=== PATIENT | male | born 1960 | race Caucasian/White ===

== ENCOUNTER 2017-10-07 17:26 | Observation (INO) | payer OTHER ==
[2017-10-07 17:45] VITALS: BMI 25.8
--- NOTE | 2017-10-07 17:45 | PDOC ---
Rapid Medical Evaluation Chief Complaint: Suicidal Time Seen by Provider: 10/07/17 17:41 Medical Evaluation: Allergies Allergy/AdvReac Type Severity Reaction Status Date / Time No Known Allergies Allergy Verified 05/16/16 15:54 10/07/17 17:42 The patient presents with a chief complaint of: Suicidal ideation for two days. Hearing voices telling him to slash his wrists. Hx of same. Denies homicidal thoughts, visual hallucinations. Ran out of seroquil, celexa and trazadone. I have performed a brief in-person evaluation of this patient; Pertinent physical exam findings: Anxious on exam, no visible wounds. I have ordered the following: One-to-one, UA, UC, Utox, CBC, CMP The patient will proceed to the ED for further evaluation. Discharge Disposition - Referrals - Patient Instructions
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
[2017-10-07] MEDS ORDERED: CITALOPRAM HYDROBROMIDE 20 MG TABLET (FP) PO ONE (18:43)
[2017-10-07] MEDS ORDERED: traZODone HCL 100 MG TABLET (FP) PO ONE (18:43)
[2017-10-07] MEDS ORDERED: CITALOPRAM HYDROBROMIDE 10 MG TABLET (FP) ONE (19:00)
--- NOTE | 2017-10-07 19:26 | PDOC ---
*Physical Exam - Vital Signs Last Vital Signs Temp Pulse Resp BP Pulse Ox 98.6 F 97 H 19 125/73 100 10/07/17 17:42 10/07/17 17:42 10/07/17 17:42 10/07/17 17:42 10/07/17 17:42 ED Treatment Course - LABORATORY CBC & Chemistry Diagram: 10/07/17 21:00 10/07/17 21:00 - Medications Given in the ED: ED Medications Discontinued Medications Generic Name Dose Route Start Last Admin Trade Name Freq PRN Reason Stop Dose Admin Citalopram Hydrobromide 40 mg 10/07/17 18:43 10/07/17 19:01 Celexa - PO 10/07/17 18:44 40 mg DAILY ONE Administration Medical Decision Making - Medical Decision Making 10/07/17 19:25 Care taken over from Dr. Chinchilla - plan to go to [facility] or [facility] will see in morning. 10/07/17 22:50 Patient discussed with hospitalist and admitted for observation. *DC/Admit/Observation/Transfer Diagnosis at time of Disposition: Suicidal ideations - Discharge Dispostion Admit: Yes - Referrals - Patient Instructions - Post Discharge Activity Forms/Work/School Notes: My Personal Safety Plan
[2017-10-07 19:54] LABS: ACETAMINOPHEN < 2.0 ug/ml (10.0-30.0); SALICYLATE < 4.0 mg/dl (0.0-30.0)
[2017-10-07 21:17] LABS: URINE APPEARANCE SLCLOUDY; URINE BILIRUBIN NEGATIVE (NEGATIVE); URINE BLOOD NEGATIVE (NEGATIVE); URINE COLOR DKYELLOW; URINE GLUCOSE (UA) NEGATIVE (NEGATIVE); URINE KETONE 2+ (NEGATIVE); URINE LEUK ESTERASE NEGATIVE (NEGATIVE); URINE NITRITE NEGATIVE (NEGATIVE)
[2017-10-07 21:34] LABS: COCAINE, UR POSITIVE ng/ml (CUTOFF=300); METHADONE, UR NEGATIVE ng/ml (CUTOFF=300); OPIATES, URI NEGATIVE ng/ml (CUTOFF=300); PHENCYCLIDINE,URINE NEGATIVE ng/ml (CUTOFF=25); URINE AMPHETAMINES NEGATIVE ng/ml (CUTOFF=500); URINE BARBITURATES NEGATIVE ng/ml (CUTOFF=200); URINE BENZODIAZEPINES NEGATIVE ng/ml (CUTOFF=200)
[2017-10-07 21:44] LABS: BASO % 1.3 % (0-2.0); EOS % 1.3 % (0-4.5); HEMATOCRIT 39.4 % (35.4-49); HEMOGLOBIN 13.3 GM/dL (11.7-16.9); LYMPH % 27.4 % (8-40); MCH 30.8 pg (25.7-33.7); MCHC 33.7 g/dl (32.0-35.9); MEAN CELL VOLUME 91.5 fl (80-96); MEAN PLT VOLUME 8.8 fl (7.5-11.1); MONO % 12.5 % (3.8-10.2); NEUT % 57.5 % (42.8-82.8); PLATELET COUNT 223 K/MM3 (134-434); RDW 15.2 % (11.9-15.9); WHITE BLOOD COUNT 7.6 K/mm3 (4.0-10.0)
[2017-10-07 21:53] LABS: URINE PROTEIN 1+ (NEGATIVE)
[2017-10-07 21:55] LABS: ALBUMIN 3.7 g/dl (3.4-5.0); ANION GAP 8 (8-16); BILIRUBIN,TOTAL 0.9 mg/dL (0.2-1.0); BLOOD UREA NITROGEN 24 mg/dL (7-18); CALCIUM 8.4 mg/dL (8.5-10.1); CHLORIDE 104 mmol/L (98-107); CO2 26 mmol/L (21-32); GLUCOSE,RANDOM 91 mg/dL (74-106); POTASSIUM 3.9 mmol/L (3.5-5.1); SGOT/AST 30 U/L (15-37); SGPT/ALT 38 U/L (12-78); SODIUM 138 mmol/L (136-145); TOT PROT 7.2 g/dl (6.4-8.2)
[2017-10-07 21:56] LABS: ALK PHOS 75 U/L (45-117)
[2017-10-07] MEDS: QUEtiapine FUMARATE 200 MG TABLET PO SCH (22:51)
--- NOTE | 2017-10-07 23:05 | PN ---
Teaching Attending Note ATTENDING PHYSICIAN STATEMENT I saw and evaluated the patient. I reviewed the resident's note and discussed the case with the resident. I agree with the resident's findings and plan as documented. SUBJECTIVE: OBJECTIVE: ASSESSMENT AND PLAN:
--- NOTE | 2017-10-07 23:12 | HP ---
CHIEF COMPLAINT: Suicidal ideation PCP: HISTORY OF PRESENT ILLNESS: 56 year old male from [facility] with PMHx asthma, GERD , schizophrenia, multiple suicidal attempts who presented to the hospital today with 2 days history of hearing voices to cut him self was admitted to obs for further evaluation. Patient reports depression and anxiety. He reports running out of his medicine for the last 4 days. He used cocaine 2days ago. He denies any visual hallucination, denies to hurt any body else. he has 4 previous attempts of suicidal,twice by cutting himself and twice with unknown drug over dose. Denies any headach, blurry vision, N/V/D/C. Denies any chest pain, SOB, abdominal pain or any urinary symptoms. Denies any recent cold or sick contact. ER course was notable for: (1)09/27 observation (2) seraquel, Trazodone , celexa (3)EKG NSR, CBC,CMP WNL (4) Urine tox screen - positive for LAURA Recent Travel:denies PAST MEDICAL HISTORY: as per HPI PAST SURGICAL HISTORY: Appendectomy Social History: Smokin/2 PPD /20 years Alcohol:denies Drugs: Cocain Family History: Allergies haloperidol [From Haldol] Allergy (Verified 10/07/17 17:45) HOME MEDICATIONS: Home Medications Medication Instructions Recorded Fluticasone/Salmeterol [Advair 1 inh PO BID 05/16/16 250-50 Diskus] Albuterol Sulfate Inhaler - 2 puff IH Q4H PRN #0 inhaler 05/18/16 [Ventolin HFA Inhaler -] REVIEW OF SYSTEMS CONSTITUTIONAL: Absent: fever, chills, diaphoresis, generalized weakness, malaise, loss of appetite, weight change HEENT: Absent: rhinorrhea, nasal congestion, throat pain, throat swelling, difficulty swallowing, mouth swelling, ear pain, eye pain, visual changes CARDIOVASCULAR: Absent: chest pain, syncope, palpitations, irregular heart rate, lightheadedness , peripheral edema RESPIRATORY: Absent: cough, shortness of breath, dyspnea with exertion, orthopnea, wheezing, stridor, hemoptysis GASTROINTESTINAL: Absent: abdominal pain, abdominal distension, nausea, vomiting, diarrhea, constipation, melena, hematochezia GENITOURINARY: Absent: dysuria, frequency, urgency, hesitancy, hematuria, flank pain, genital pain MUSCULOSKELETAL: Absent: myalgia, arthralgia, joint swelling, back pain, neck pain SKIN: Absent: rash, itching, pallor HEMATOLOGIC/IMMUNOLOGIC: Absent: easy bleeding, easy bruising, lymphadenopathy, frequent infections ENDOCRINE: Absent: unexplained weight gain, unexplained weight loss, heat intolerance, cold intolerance NEUROLOGIC: Absent: headache, focal weakness or paresthesias, dizziness, unsteady gait, seizure, mental status changes, bladder or bowel incontinence PSYCHIATRIC: Absent: anxiety, depression, suicidal or homicidal ideation,auditory hallucinations. PHYSICAL EXAMINATION Vital Signs - 24 hr 10/07/17 17:42 Temperature 98.6 F Pulse Rate 97 H Respiratory 19 Rate Blood Pressure 125/73 O2 Sat by Pulse 100 Oximetry (%) GENERAL: Awake, alert, and fully oriented, in no acute distress. HEAD: Normal with no signs of trauma. EYES: sclera anicteric, conjunctiva clear. EARS, NOSE, THROAT: Moist mucous membranes. NECK: Normal range of motion, supple Lungs : CTA B/L no crackles, wheezes or accessory muscle use HEART: Regular rate and rhythm, normal S1 and S2 without murmur, rub or gallop. ABDOMEN: Soft, nontender, not distended, normoactive bowel sounds, no guarding, no rebound, UPPER EXTREMITIES: 2+ pulses, warm, well-perfused. No cyanosis. No clubbing. No peripheral edema.2 old scratches. LOWER EXTREMITIES: 2+ pulses, warm, well-perfused. No calf tenderness. No peripheral edema. NEUROLOGICAL: Cranial nerves II-XII intact. Normal speech. PSYCHIATRIC:flat affect, still hearing voices SKIN: Warm, dry, normal turgor, no rashes or lesions noted, normal capillary refill. Laboratory Results - last 24 hr 10/07/17 10/07/17 10/07/17 18:35 21:00 21:00 WBC 7.6 D RBC 4.30 Hgb 13.3 Hct 39.4 MCV 91.5 MCH 30.8 MCHC 33.7 RDW 15.2 Plt Count 223 MPV 8.8 Neutrophils % 57.5 Lymphocytes % 27.4 Monocytes % 12.5 H Eosinophils % 1.3 Basophils % 1.3 Sodium Potassium Chloride Carbon Dioxide Anion Gap BUN Creatinine Creat Clearance w eGFR Random Glucose Calcium Total Bilirubin AST ALT Alkaline Phosphatase Total Protein Albumin Urine Color Dkyellow Urine Appearance Slcloudy Urine pH 5.0 D Ur Specific [place] 1.031 Urine Protein 1+ H Urine Glucose (UA) Negative Urine Ketones 2+ H Urine Blood Negative Urine Nitrite Negative Urine Bilirubin Negative Urine Urobilinogen 2.0 Ur Leukocyte Esterase Negative Salicylates < 4.0 Opiates Screen Methadone Screen Acetaminophen < 2.0 L Barbiturate Screen Phencyclidine Screen Ur Amphetamines Screen MDMA (Ecstasy) Screen Benzodiazepines Screen Cocaine Screen U Marijuana (THC) Screen Alcohol, Quantitative 10/07/17 10/07/17 10/07/17 21:00 21:00 21:00 WBC RBC Hgb Hct MCV MCH MCHC RDW Plt Count MPV Neutrophils % Lymphocytes % Monocytes % Eosinophils % Basophils % Sodium 138 Potassium 3.9 Chloride 104 Carbon Dioxide 26 Anion Gap 8 BUN 24 H Creatinine 1.0 Creat Clearance w eGFR > 60 Random Glucose 91 Calcium 8.4 L Total Bilirubin 0.9 D AST 30 D ALT 38 Alkaline Phosphatase 75 Total Protein 7.2 Albumin 3.7 Urine Color Urine Appearance Urine pH Ur Specific [place] Urine Protein Urine Glucose (UA) Urine Ketones Urine Blood Urine Nitrite Urine Bilirubin Urine Urobilinogen Ur Leukocyte Esterase Salicylates Opiates Screen Negative Methadone Screen Negative Acetaminophen Barbiturate Screen Negative Phencyclidine Screen Negative Ur Amphetamines Screen Negative MDMA (Ecstasy) Screen Negative Benzodiazepines Screen Negative Cocaine Screen Positive U Marijuana (THC) Screen Negative Alcohol, Quantitative < 5.0 CBC, BMP 10/07/17 21:00 10/07/17 21:00 ASSESSMENT/PLAN: 56 year old male from [facility] with PMHx asthma, GERD , schizophrenia, multiple suicidal attempts who presented to the hospital today with 2 days history of hearing voices to cut him self was admitted to obs for further evaluation. #Suicidal ideation, * one to one observation * Continue home meds * Psych consult * # Schizophrenia * continue home meds * Seraquel 200 mg PO BID * , trazodone 100 HS * celexa 40 po daily * # Recent cocaine use * Monitor * psych consult * urine tox screen - positive for LAURA, negative for all other commonly screened drugs. * # FEN * No fluids * E: WNL * N: regular diet * Proph * DVTs : SCDS Both legs , early ambulation * GI: No need # Dispo * Admit to obs * day team please verify his home meds and continue his meds . (was given only his doses in ED ) * Visit type - Emergency Visit Emergency Visit: Yes ED Registration Date: 10/08/17 Care time: The patient presented to the Emergency Department on the above date and was hospitalized for further evaluation of their emergent condition. - New Patient This patient is new to me today: Yes Date on this admission: 10/08/17 - Critical Care Critical Care patient: No
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
[2017-10-07] MEDS ORDERED: ALBUTEROL SO4 18 GM HFA INHALER IH PRN (23:49)
[2017-10-08 00:18] LABS: EPI CELLS RARE /HPF (FEW); URINE HYALINE CAST 1 /lpf; URINE MUCUS MANY
[2017-10-08 08:02] LABS: HEMATOCRIT 38.6 % (35.4-49); HEMOGLOBIN 12.6 GM/dL (11.7-16.9); MCH 30.1 pg (25.7-33.7); MCHC 32.7 g/dl (32.0-35.9); MEAN PLT VOLUME 8.7 fl (7.5-11.1); PLATELET COUNT 201 K/MM3 (134-434); RBC 4.19 M/mm3 (4.00-5.60); WHITE BLOOD COUNT 4.3 K/mm3 (4.0-10.0)
[2017-10-08 08:41] LABS: ALBUMIN 3.4 g/dl (3.4-5.0); ANION GAP 9 (8-16); BLOOD UREA NITROGEN 20 mg/dL (7-18); CALCIUM 8.3 mg/dL (8.5-10.1); CHLORIDE 106 mmol/L (98-107); CO2 25 mmol/L (21-32); GLUCOSE,RANDOM 94 mg/dL (74-106); POTASSIUM 3.9 mmol/L (3.5-5.1); SGPT/ALT 34 U/L (12-78); SODIUM 140 mmol/L (136-145)
[2017-10-08 08:44] LABS: ALK PHOS 71 U/L (45-117); CREATININE 0.9 mg/dL (0.7-1.3); SGOT/AST 27 U/L (15-37); TOT PROT 6.5 g/dl (6.4-8.2)
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
[2017-10-08] MEDS ORDERED: BUDESONIDE/FORMETEROL FUMARATE 80/4.5 mcg INHALER IH SCH (10:00)
--- NOTE | 2017-10-08 10:01 | EKG ---
Test Reason : Blood Pressure : / mmHG Vent. Rate : 069 BPM Atrial Rate : 069 BPM P-R Int : 138 ms QRS Dur : 110 ms QT Int : 428 ms P-R-T Axes : 056 -28 051 degrees QTc Int : 458 ms NORMAL SINUS RHYTHM INCOMPLETE RIGHT BUNDLE BRANCH BLOCK BORDERLINE ECG NO PREVIOUS ECGS AVAILABLE Confirmed by MD BRIGIDA, LAZARA ([id number]) on 10/08/2017 10:00:51 AM Referred By: Confirmed By:LAZARA ALLRED MD
[2017-10-08] MEDS: QUEtiapine FUMARATE 200 MG TABLET PO SCH (10:05)
[2017-10-08 12:13] VITALS: TEMP 97.5
--- NOTE | 2017-10-08 14:23 | PN ---
Teaching Attending Note Name of Resident: Trevon Jackson ATTENDING PHYSICIAN STATEMENT I saw and evaluated the patient. I reviewed the resident's note and discussed the case with the resident. I agree with the resident's findings and plan as documented. SUBJECTIVE: had auditory hallucinations which order him to kill himself . has a plan by cuting his wrist. OBJECTIVE: NAD , flat affect CV: RRR Lungs: CTAB Ext: no edema. old linear scars on both fore arms ASSESSMENT AND PLAN: 56 y/o man with h/o Schizophrenia, depressionand multiple suicidal attempts who presented with auditory hallucinations and SI . 1- Acute psychosis, depression and SI: - 1:1 - transfer to inpt psych. - cont seroquel. - resume celexa.
[2017-10-08 16:32] VITALS: BP 92/50; PULSE 62
--- NOTE | 2017-10-08 18:47 | DS ---
Physical Exam: SUBJECTIVE: Patient seen and examined Pt endorses a persisting auditory hallucination for past several days, stating that a voice is telling him that he is no good, and that he should cut his wrists. He endorses suicidal intent and that he would cut himself if he wasn't in the hospital. He denies visual hallucinations and homicidal ideations. OBJECTIVE: Vital Signs Period Temp Pulse Resp BP Sys/Knowles Pulse Ox Last 24 Hr 97.5 F 62-66 16-16 92-103/50-55 95-100 PHYSICAL EXAM GENERAL: middle aged male, lying in bed looking down, visibly distressed HEENT: NC, AT NECK: Trachea midline, full range of motion, supple. LUNGS: Breath sounds equal, clear to auscultation bilaterally, no wheezes, no crackles, no accessory muscle use. HEART: Regular rate and rhythm, S1, S2 without murmur, rub or gallop. ABDOMEN: Soft, nontender, nondistended, normoactive bowel sounds, no guarding, no rebound, no hepatosplenomegaly, no masses. EXTREMITIES: thin scars over forearms, tattoes on forearms, no signs of recent cutting NEUROLOGICAL: Cranial nerves II through XII grossly intact. Normal speech, gait not observed. PSYCH: depressed mood and affect, unable to make eye contact, logical speech LABS Laboratory Results - last 24 hr 10/07/17 10/07/17 10/07/17 18:35 21:00 21:00 WBC 7.6 D RBC 4.30 Hgb 13.3 Hct 39.4 MCV 91.5 MCH 30.8 MCHC 33.7 RDW 15.2 Plt Count 223 MPV 8.8 Neutrophils % 57.5 Lymphocytes % 27.4 Monocytes % 12.5 H Eosinophils % 1.3 Basophils % 1.3 Sodium Potassium Chloride Carbon Dioxide Anion Gap BUN Creatinine Creat Clearance w eGFR Random Glucose Calcium Total Bilirubin AST ALT Alkaline Phosphatase Total Protein Albumin Urine Color Dkyellow Urine Appearance Slcloudy Urine pH 5.0 D Ur Specific [place] 1.031 Urine Protein 1+ H Urine Glucose (UA) Negative Urine Ketones 2+ H Urine Blood Negative Urine Nitrite Negative Urine Bilirubin Negative Urine Urobilinogen 2.0 Ur Leukocyte Esterase Negative Urine WBC (Auto) 1 Urine RBC (Auto) 6 Ur Epithelial Cells Rare Hyaline Casts 1 Urine Mucus Many Salicylates < 4.0 Opiates Screen Methadone Screen Acetaminophen < 2.0 L Barbiturate Screen Phencyclidine Screen Ur Amphetamines Screen MDMA (Ecstasy) Screen Benzodiazepines Screen Cocaine Screen U Marijuana (THC) Screen Alcohol, Quantitative 10/07/17 10/07/17 10/07/17 21:00 21:00 21:00 WBC RBC Hgb Hct MCV MCH MCHC RDW Plt Count MPV Neutrophils % Lymphocytes % Monocytes % Eosinophils % Basophils % Sodium 138 Potassium 3.9 Chloride 104 Carbon Dioxide 26 Anion Gap 8 BUN 24 H Creatinine 1.0 Creat Clearance w eGFR > 60 Random Glucose 91 Calcium 8.4 L Total Bilirubin 0.9 D AST 30 D ALT 38 Alkaline Phosphatase 75 Total Protein 7.2 Albumin 3.7 Urine Color Urine Appearance Urine pH Ur Specific [place] Urine Protein Urine Glucose (UA) Urine Ketones Urine Blood Urine Nitrite Urine Bilirubin Urine Urobilinogen Ur Leukocyte Esterase Urine WBC (Auto) Urine RBC (Auto) Ur Epithelial Cells Hyaline Casts Urine Mucus Salicylates Opiates Screen Negative Methadone Screen Negative Acetaminophen Barbiturate Screen Negative Phencyclidine Screen Negative Ur Amphetamines Screen Negative MDMA (Ecstasy) Screen Negative Benzodiazepines Screen Negative Cocaine Screen Positive U Marijuana (THC) Screen Negative Alcohol, Quantitative < 5.0 10/08/17 10/08/17 06:00 07:30 WBC 4.3 D RBC 4.19 Hgb 12.6 Hct 38.6 MCV 92.0 MCH 30.1 MCHC 32.7 RDW 15.0 Plt Count 201 MPV 8.7 Neutrophils % Lymphocytes % Monocytes % Eosinophils % Basophils % Sodium 140 Potassium 3.9 Chloride 106 Carbon Dioxide 25 Anion Gap 9 BUN 20 H Creatinine 0.9 Creat Clearance w eGFR > 60 Random Glucose 94 Calcium 8.3 L Total Bilirubin 1.0 AST 27 ALT 34 Alkaline Phosphatase 71 Total Protein 6.5 Albumin 3.4 Urine Color Urine Appearance Urine pH Ur Specific [place] Urine Protein Urine Glucose (UA) Urine Ketones Urine Blood Urine Nitrite Urine Bilirubin Urine Urobilinogen Ur Leukocyte Esterase Urine WBC (Auto) Urine RBC (Auto) Ur Epithelial Cells Hyaline Casts Urine Mucus Salicylates Opiates Screen Methadone Screen Acetaminophen Barbiturate Screen Phencyclidine Screen Ur Amphetamines Screen MDMA (Ecstasy) Screen Benzodiazepines Screen Cocaine Screen U Marijuana (THC) Screen Alcohol, Quantitative HOSPITAL COURSE: Date of Admission:10/08/17 Date of Discharge: 10/08/17 56M w/ hx of schizophrenia and multiple suicidal attempts who presents with several days of auditory hallucinations, suicidal ideation, intent, and plan after running out of his medications. Pt stated that he constantly hears a voice telling him to cut his wrists. In the ED, pt started on his home meds, and placed on 1:1 observation. Pharmacy called to confirm meds. Was told that he was prescribed trazodone 100mg qd, citalopram 40mg qd, seroquel 50mg XR, and seroquel 400mg HS in july of 2016, but pt never picked them up. Pt requires inpatient psych, so he is being transferred to [facility]. He has normal vitals, normal labs, and is stable for transfer to [facility]. -Trevon Jackson MD PGY1 Minutes to complete discharge: 35 Discharge Summary Reason For Visit: SUICIDAL IDEATION AUDITORY HALLUCINATION Condition: Fair - Instructions Diet, Activity, Other Instructions: You presented after hearing voices telling you to hurt yourself, so we started you on your home medications, and you are being transferred to an inpatient psychiatric facility for treatment. Medications: as per inpatient psychiatrists Followups: 1. Follow up with your PCP within one week of discharge. If you don't have one, we have referred you to Dr. Hung's office. Please schedule an appointment with Dr. Abad. 2. Followup with your psychiatrist within one week of discharge. If you don't have one, we have referred you to Dr. Mancuso. If you develop any suicidal thoughts, homicidal thoughts, have any auditory hallucinations, or any other concerning symptoms, return to the ED. Referrals: Kip Hung MD [Staff Physician] - Emanuel Mancuso MD [Staff Physician] - Disposition: TRANSFER ACUTE CARE/OTHER HOSP - Home Medications Comprehensive Discharge Medication List: Ambulatory Orders Fluticasone/Salmeterol [Advair 250-50 Diskus] 1 inh PO BID 05/16/16 Albuterol Sulfate Inhaler - [Ventolin HFA Inhaler -] 2 puff IH Q4H PRN #0 inhaler 05/18/16 Citalopram Hydrobromide [Celexa -] 40 mg PO DAILY 10/08/17 Quetiapine Fumarate [Seroquel] 200 tab PO BID 10/08/17 This patient is new to me today: Yes Date on this admission: 10/08/17 Emergency Visit: Yes ED Registration Date: 10/08/17 Care time: The patient presented to the Emergency Department on the above date and was hospitalized for further evaluation of their emergent condition. Critical Care patient: No - Discharge Referral Referred to [facility] No
[2017-10-08] MEDS ORDERED: traZODone HCL 50 MG TABLET (FP) PO SCH (22:00)
[2017-10-09] MEDS ORDERED: CITALOPRAM HYDROBROMIDE 20 MG TABLET (FP) PO SCH (10:00)
== END 2017-10-08 18:25 | disposition short-term general hospital (02) ==
LOC: JER 17:26 → JERBED 10-08 00:48
PROVIDERS: ADMIT Internal Medicine; ATTEND Internal Medicine
PROC: 3E0F7GC Introduction of Other Therapeutic Substance into Respiratory Tract, Via Natural or Artificial Opening (ICD-10-PCS; principal; 2017-10-08)
DX: R45.851 Suicidal ideations (principal); F14.20 Cocaine dependence, uncomplicated; R44.0 Auditory hallucinations; F20.9 Schizophrenia, unspecified; F32.9 Major depressive disorder, single episode, unspecified; F41.9 Anxiety disorder, unspecified; F17.210 Nicotine dependence, cigarettes, uncomplicated; K21.9 Gastro-esophageal reflux disease without esophagitis; Z91.5 Personal history of self-harm; F29 Unspecified psychosis not due to a substance or known physiological condition
CPT/HCPCS: 36415; 80053; 80307; 81003; 81015; 85025; 85027; 93005; 93010; 94640; 99285-25; G0378

== ENCOUNTER 2018-02-05 11:16 | Inpatient (IN) | payer OTHER ==
[2018-02-05 12:02] VITALS: BMI 25.0
--- NOTE | 2018-02-05 14:32 | HP ---
CIWA Score - CIWA Score Nausea/Vomitin-Mild Nausea/No Vomiting Muscle Tremors: 4-Moderate,w/Arms Extend Anxiety: 4-Mod. Anxious/Guarded Agitation: 1-Slight > Activity Paroxysmal Sweats: 1-Minimal Palms Moist Orientation: 0-Oriented Tacttile Disturbances: 1-Very Mild Itch/Numbness Auditory Disturbances: 1-Very Mild Visual Disturbances: 1-Very Mild Sensitivity Headache: 1-Very Mild CIWA-Ar Total Score: 15 Admission ROS BHS - HPI Chief Complaint: It's too hard, I can't stop on my own, I get to anxious and want it too much, I need help Allergies/Adverse Reactions: Allergies Allergy/AdvReac Type Severity Reaction Status Date / Time haloperidol [From Haldol] Allergy Verified 02/05/18 13:27 History of Present Illness: 57 yo gentleman here for detox from alcohol, also using cocaine. Previously here in 2015 for detox, seen in ED in September for suicidal ideation where he was then sent to [facility] psych for eval and treatment. Although he is prescribed psych meds, he does not take them as he 'feels ok' without them. He was last in detox several months ago at [facility]. He did not f/u with rehab then but states he will this time. Denies seizures but does have black outs. Noted urine tox + bzo - states he did take two sticks of xanax three days ago when feeling nervous but this was just a one time thing. - Ebola screening Have you traveled outside of the country in the last 21 days: No (N) Have you had contact with anyone from an Ebola affected area: No Have you been sick,other than usual withdrawal symptoms: No Do you have a fever: No - Review of Systems Constitutional: Loss of Appetite, Malaise, Changes in sleep, Weakness EENT: reports: Nose Congestion Respiratory: reports: No Symptoms reported Cardiac: reports: No Symptoms Reported GI: reports: Indigestion : reports: Frequency Musculoskeletal: reports: Back Pain, Muscle Pain Neuro: reports: Headache Endocrine: reports: No Symptoms Reported Hematology: reports: No Symptoms Reported Psychiatric: reports: Judgement Intact, Mood/Affect Appropiate, Anxious Other Systems: Reviewed and Negative Patient History - Patient Medical History Hx Anemia: No Hx Asthma: Yes Hx Chronic Obstructive Pulmonary Disease (COPD): No Hx Cancer: No Hx Cardiac Disorders: No Hx Congestive Heart Failure: No Hx Hypertension: No Hx Hypercholesterolemia: No Hx Pacemaker: No HX Cerebrovascular Accident: No Hx Seizures: No Hx Dementia: No Hx Diabetes: No Hx Gastrointestinal Disorders: Yes (GERD) Hx Liver Disease: No Hx Genitourinary Disorders: No Hx Sexually Transmitted Disorders: No Hx Renal Disease (ESRD): No Hx Thyroid Disease: No Hx Human Immunodeficiency Virus (HIV): No (LAST 08/11 NEGATIVE) Hx Hepatitis C: No Hx Depression: Yes Hx Suicide Attempt: No Hx Bipolar Disorder: No Hx Schizophrenia: No - Patient Surgical History Past Surgical History: Yes Hx Neurologic Surgery: No Hx Cataract Extraction: No Hx Cardiac Surgery: No Hx Lung Surgery: No Hx Breast Surgery: No Hx Breast Biopsy: No Hx Abdominal Surgery: No Hx Appendectomy: Yes (at age 12) Hx Cholecystectomy: No Hx Genitourinary Surgery: No Hx Section: No Hx Orthopedic Surgery: No Anesthesia Reaction: No - PPD History Previous Implant?: Yes Documented Results: Negative w/proof Implanted On Prior [facility] Admission?: Yes Date: 03/20/16 Results: O MM PPD to be Administered?: Yes - Reproductive History Patient is a Female of Child Bearing Age (11 -55 yrs old): No (male) - Smoking Cessation Smoking history: Current every day smoker Have you smoked in the past 12 months: Yes Aproximately how many cigarettes per day: 10 Cigars Per Day: 0 Hx Chewing Tobacco Use: No Initiated information on smoking cessation: Yes 'Breaking Loose' booklet given: 02/05/18 (give on floor) - Substance & Tx. History Hx Alcohol Use: Yes Hx Substance Use: Yes Substance Use Type: Alcohol, Cocaine Hx Substance Use Treatment: Yes (detox, rehab) - Substances Abused Cocaine Route: Inhalation Frequency: 1-2 times per week Amount used: 4 bags when used Age of first use: 38 Date of Last Use: 02/03/18 Alcohol Route: Oral Frequency: Daily Amount used: 2-3 six packs daily (16 oz beer) Age of first use: 14 Date of Last Use: 02/04/18 Family Disease History - Family Disease History Family Disease History: [place]: Mother (), Other: Father (alcohol,, sepsis), Mother, Brother (two - living - healthy), Sister (one - living - healthy), Daughter (three - living - healthy) Admission Physical Exam [facility] - Vital Signs Vital Signs: Vital Signs - 24 hr 02/05/18 12:01 Temperature 97.7 F Pulse Rate 79 Respiratory 18 Rate Blood Pressure 132/74 - Physical General Appearance: Yes: Nourished, Appropriately Dressed, Moderate Distress, Anxious HEENTM: Yes: Hearing grossly Normal, Normal ENT Inspection, Normocephalic, Normal Voice, Pharynx Normal Respiratory: Yes: Normal Breath Sounds, No Respiratory Distress Neck: Yes: No masses,lesions,Nodules, Supple Breast: Yes: Breast Exam Deferred Cardiology: Yes: Regular Rhythm, Regular Rate Abdominal: Yes: Flat, Soft Genitourinary: Yes: Frequency Back: Yes: Normal Inspection Musculoskeletal: Yes: full range of Motion, Gait Steady Extremities: Yes: Normal Inspection, Non-Tender Neurological: Yes: Fully Oriented, Alert, Normal Mood/Affect, Normal Response Integumentary: Yes: Normal Color, Warm Lymphatic: Yes: Within Normal Limits - Diagnostic (1) Alcohol dependence with uncomplicated withdrawal Current Visit: Yes Status: Chronic (2) Cocaine dependence Current Visit: Yes Status: Chronic (3) GERD (gastroesophageal reflux disease) Current Visit: Yes Status: Chronic Qualifiers: Esophagitis presence: esophagitis presence not specified Qualified Code(s) : K21.9 - Gastro-esophageal reflux disease without esophagitis (4) Asthma Current Visit: Yes Status: Chronic (5) Nicotine dependence Current Visit: Yes Status: Chronic Qualifiers: Nicotine product type: cigarettes Comment: declines gum/patch while here Cleared for Admission [facility] - Detox or Rehab [facility] Level of Care: Medically Managed Detox Regimen/Protocol: Librium [facility] Breath Alcohol Content Breath Alcohol Content: 0 Urine Drug Screen - Results Drug Screen Negative: No Urine Drug Screen Results: LAURA-Cocaine, BZO-Benzodiazepines
[2018-02-05] MEDS ORDERED: guaiFENesin/D-METHORPHAN HB 10 ML UNIT-DOSE CUPS PO PRN (14:41)
[2018-02-05] MEDS ORDERED: LOPERAMIDE HCL 2 MG CAPSULE PO PRN (14:41)
[2018-02-05] MEDS ORDERED: IBUPROFEN 400 MG TABLET (FP) PO PRN (14:41)
[2018-02-05] MEDS ORDERED: MAG HYDROX/AL HYDROX/SIMETH 30 ML UNIT-DOSE CUP PO PRN (14:41)
[2018-02-05] MEDS ORDERED: MENTHOL/PHENOL 1 EACH UD MM PRN (14:41)
[2018-02-05] MEDS ORDERED: hydrOXYzine PAMOATE 25 MG CAPSULE (FP) PO PRN (14:41)
[2018-02-05] MEDS ORDERED: ACETAMINOPHEN 325 MG TABLET (FP) PO PRN (14:41)
[2018-02-05] MEDS ORDERED: P-EPHED 60MG/TRIPROLIDI 2.5MG TABLET PO PRN (14:41)
[2018-02-05] MEDS ORDERED: MAGNESIUM HYDROX 2400MG/30ML ORAL SUSPENSION 30 ML CUP PO PRN (14:41)
[2018-02-05] MEDS ORDERED: chlordiazePOXIDE HCL 25 MG CAPSULE PO PRN (14:41)
[2018-02-05] MEDS ORDERED: MAGNESIUM CITRATE 300 ML BOTTLE PO PRN (14:41)
[2018-02-05] MEDS ORDERED: ALBUTEROL SO4 18 GM HFA INHALER IH PRN (14:42)
[2018-02-05] MEDS ORDERED: chlordiazePOXIDE HCL 25 MG CAPSULE PO ONE (15:15)
[2018-02-05 16:50] LABS: URINE APPEARANCE CLEAR; URINE BILIRUBIN NEGATIVE (<2.0 mg/dL); URINE COLOR YELLOW; URINE GLUCOSE (UA) NEGATIVE (NEGATIVE); URINE KETONE 1+ (NEGATIVE); URINE LEUK ESTERASE NEGATIVE (NEGATIVE); URINE NITRITE NEGATIVE (NEGATIVE); URINE PROTEIN NEGATIVE (NEGATIVE); URINE UROBILINOGEN NEGATIVE mg/dL (0.2-1.0)
[2018-02-05] MEDS: chlordiazePOXIDE HCL 25 MG CAPSULE PO SCH ×2 (17:31→22:06)
[2018-02-05] MEDS ORDERED: MELATONIN 5 MG TABLETS PO PRN (22:00)
[2018-02-05] MEDS: BUDESONIDE/FORMETEROL FUMARATE 160/4.5 mcg INHALER IH SCH (22:06)
[2018-02-05] MEDS: THIAMINE HCL 100 MG TABLET (FP) PO SCH (22:06)
[2018-02-06] MEDS: chlordiazePOXIDE HCL 25 MG CAPSULE PO SCH ×4 (06:19→22:11)
[2018-02-06 10:09] LABS: HEMATOCRIT 38.2 % (35.4-49); HEMOGLOBIN 13.1 GM/dL (11.7-16.9); MCH 31.3 pg (25.7-33.7); MCHC 34.2 g/dl (32.0-35.9); MEAN CELL VOLUME 91.4 fl (80-96); MEAN PLT VOLUME 8.6 fl (7.5-11.1); PLATELET COUNT 208 K/MM3 (134-434); RBC 4.18 M/mm3 (4.00-5.60); RDW 14.6 % (11.9-15.9); WHITE BLOOD COUNT 4.2 K/mm3 (4.0-10.0)
[2018-02-06] MEDS: PRENATAL VITAMINS W/ FOLIC ACID TABLET (FP) PO SCH (10:16)
[2018-02-06] MEDS: PANTOPRAZOLE 40 MG TABLET (FP) PO SCH (10:16)
[2018-02-06] MEDS: BUDESONIDE/FORMETEROL FUMARATE 160/4.5 mcg INHALER IH SCH ×2 (10:16→22:10)
[2018-02-06 10:24] LABS: CHLORIDE 107 mmol/L (98-107); POTASSIUM 4.2 mmol/L (3.5-5.1); SODIUM 141 mmol/L (136-145)
[2018-02-06 10:36] LABS: ALBUMIN 3.5 g/dl (3.4-5.0); ALK PHOS 88 U/L (45-117); ANION GAP 6 (8-16); BILIRUBIN,TOTAL 0.3 mg/dL (0.2-1.0); BLOOD UREA NITROGEN 22 mg/dL (7-18); CO2 28 mmol/L (21-32); CREATININE 0.9 mg/dL (0.7-1.3); GLUCOSE,RANDOM 104 mg/dL (74-106); SGOT/AST 23 U/L (15-37); SGPT/ALT 27 U/L (12-78); TOT PROT 6.6 g/dl (6.4-8.2)
--- NOTE | 2018-02-06 10:45 | CONSULT ---
[facility] Psychiatric Consult - Data Date of interview: 02/06/18 Admission source: Self-referred Identifying data: Patient is a 57 y/o male , unemployed, domiciled, father of 3 children, dependent on family members for his survival Substance Abuse History: He has a history of substance use disorder and admitted for ETOH and Cocaine use, drinks daily 3-6 packs of beer 12 oz a day, and cocaine $80 worth twice weekly, smokes cigarettes 1/2 pack a day. Denies physical complaints at this time. Refer to addiction counselor note for more detailed history Medical History: Medical history is significant for Astma, GERD. Medicated with symbiocort, and albuterol as needed Physical/Sexual Abuse/Trauma History: Denies history of emotional, physical or sexual abuse Additional Comment: Patient suffered from Depression, he has prior psychiatric hospitalizations, he most recent psychiatric in patient way admission was in [facility]. He attends his out patient psychiatric care at [facility]. He reports non compliance with his psychotropic medications duue to substance use. He is medciated as follows: Seroquel 200 mg po bid. Celexa 40 mg po q am. Trazodone 100 mg po q hs Mental Status Exam - Mental Status Exam Alert and Oriented to: Place, Person Cognitive Function: Grossly Intact Patient Appearance: Well Groomed Mood: Depressed Affect: Appropriate Patient Behavior: Cooperative Speech Pattern: Clear Voice Loudness: Normal Thought Process: Intact Thought Disorder: Not Present Hallucinations: None Suicidal Ideation: None Homicidal Ideation: None Insight/Judgement: Poor Sleep: Poorly Appetite: Good, Fair Muscle strength/Tone: Normal Gait/Station: Normal Psychiatric Findings - Problem List ([place] 1, 2,3) (1) Alcohol dependence with uncomplicated withdrawal Current Visit: Yes Status: Acute (2) Asthma Current Visit: Yes Status: Chronic (3) Cocaine dependence Current Visit: Yes Status: Acute (4) GERD (gastroesophageal reflux disease) Current Visit: Yes Status: Chronic Qualifiers: Esophagitis presence: esophagitis presence not specified Qualified Code(s) : K21.9 - Gastro-esophageal reflux disease without esophagitis (5) Depression Current Visit: No Status: Chronic - Initial Treatment Plan Initial Treatment Plan: 1) admit to Detox. 2) Detox protocol. 3) Resume current medications: Seroquel 200 mg po q hs. Celexa 40 mg po daily. Trazodone 100 mg po q hs
--- NOTE | 2018-02-06 13:27 | EKG ---
Test Reason : Blood Pressure : / mmHG Vent. Rate : 058 BPM Atrial Rate : 058 BPM P-R Int : 000 ms QRS Dur : 114 ms QT Int : 458 ms P-R-T Axes : 000 -27 030 degrees QTc Int : 449 ms SINUS BRADYCARDIA INCOMPLETE RIGHT BUNDLE BRANCH BLOCK BORDERLINE ECG WHEN COMPARED WITH ECG OF 07-OCT-2017 21:12, NO SIGNIFICANT CHANGE WAS FOUND Confirmed by RIDGE RUDD MD ([id number]) on 02/06/2018 1:27:07 PM Referred By: Confirmed By:RIDGE RUDD MD
--- NOTE | 2018-02-06 14:21 | PN ---
S CIWA - CIWA Score Nausea/Vomitin-No Nausea/No Vomiting Muscle Tremors: 4-Moderate,w/Arms Extend Anxiety: 4-Mod. Anxious/Guarded Agitation: 4-Moderately Restless Paroxysmal Sweats: No Perspiration Orientation: 0-Oriented Tacttile Disturbances: 0-None Auditory Disturbances: 0-None Visual Disturbances: 0-None Headache: 0-None Present CIWA-Ar Total Score: 12 BHS Progress Note (SOAP) Subjective: ANXIETY,SLIGHT TREMORS,INTERMITTENT SLEEP. Objective: 02/06/18 14:21 Vital Signs 02/06/18 02/06/18 06:22 10:39 Temperature 96 F L 96.3 F L Pulse Rate 67 61 Respiratory 18 18 Rate Blood Pressure 104/66 82/54 Laboratory Tests 02/05/18 02/06/18 02/06/18 09:15 08:00 08:00 WBC 4.2 RBC 4.18 Hgb 13.1 Hct 38.2 MCV 91.4 MCH 31.3 MCHC 34.2 RDW 14.6 Plt Count 208 MPV 8.6 Sodium 141 Potassium 4.2 Chloride 107 Carbon Dioxide 28 Anion Gap 6 L BUN 22 H Creatinine 0.9 Creat Clearance w eGFR > 60 Random Glucose 104 Calcium 8.0 L Total Bilirubin 0.3 D AST 23 ALT 27 D Alkaline Phosphatase 88 D Total Protein 6.6 Albumin 3.5 Urine Color Yellow Urine Appearance Clear Urine pH 7.0 D Ur Specific [place] 1.017 Urine Protein Negative Urine Glucose (UA) Negative Urine Ketones 1+ H Urine Blood Negative Urine Nitrite Negative Urine Bilirubin Negative Urine Urobilinogen Negative Ur Leukocyte Esterase Negative RPR Titer 02/06/18 08:00 WBC RBC Hgb Hct MCV MCH MCHC RDW Plt Count MPV Sodium Potassium Chloride Carbon Dioxide Anion Gap BUN Creatinine Creat Clearance w eGFR Random Glucose Calcium Total Bilirubin AST ALT Alkaline Phosphatase Total Protein Albumin Urine Color Urine Appearance Urine pH Ur Specific [place] Urine Protein Urine Glucose (UA) Urine Ketones Urine Blood Urine Nitrite Urine Bilirubin Urine Urobilinogen Ur Leukocyte Esterase RPR Titer Nonreactive Assessment: 02/06/18 14:21 WITHDRAWAL SX Plan: CONTINUE DETOX
[2018-02-06] MEDS ORDERED: QUEtiapine FUMARATE 200 MG TABLET PO SCH (22:00)
[2018-02-06] MEDS ORDERED: traZODone HCL 50 MG TABLET (FP) PO SCH (22:00)
[2018-02-06] MEDS: THIAMINE HCL 100 MG TABLET (FP) PO SCH (22:10)
[2018-02-07] MEDS: chlordiazePOXIDE HCL 25 MG CAPSULE PO SCH ×2 (06:56→10:09)
[2018-02-07] MEDS: PRENATAL VITAMINS W/ FOLIC ACID TABLET (FP) PO SCH (10:08)
[2018-02-07] MEDS: PANTOPRAZOLE 40 MG TABLET (FP) PO SCH (10:08)
[2018-02-07] MEDS: BUDESONIDE/FORMETEROL FUMARATE 160/4.5 mcg INHALER IH SCH (10:09)
--- NOTE | 2018-02-07 11:10 | EKG ---
Test Reason : Blood Pressure : / mmHG Vent. Rate : 059 BPM Atrial Rate : 059 BPM P-R Int : 136 ms QRS Dur : 110 ms QT Int : 440 ms P-R-T Axes : 061 -24 048 degrees QTc Int : 435 ms SINUS BRADYCARDIA INCOMPLETE RIGHT BUNDLE BRANCH BLOCK BORDERLINE ECG WHEN COMPARED WITH ECG OF 05-FEB-2018 15:52, NO SIGNIFICANT CHANGE WAS FOUND Confirmed by JOLANTA MCNULTY MD ([id number]) on 02/07/2018 11:10:08 AM Referred By: Confirmed By:JOLANTA MCNULTY MD
--- NOTE | 2018-02-07 13:52 | PN ---
S CIWA - CIWA Score Nausea/Vomitin Muscle Tremors: 3 Anxiety: 3 Agitation: 3 Paroxysmal Sweats: 3 Orientation: 0-Oriented Tacttile Disturbances: 1-Very Mild Itch/Numbness Auditory Disturbances: 0-None Visual Disturbances: 0-None Headache: 0-None Present CIWA-Ar Total Score: 16 BHS Progress Note (SOAP) Subjective: Sweats shakes sleep disturbance Objective: 02/07/18 13:51 A & O x 3 Vital Signs Temperature 96.9 F L 02/07/18 09:27 Pulse Rate 64 02/07/18 09:27 Respiratory Rate 18 02/07/18 09:27 Blood Pressure 105/68 02/07/18 09:27 O2 Sat by Pulse Oximetry (%) Assessment: 02/07/18 13:52 withdrawal sx Plan: continue detox
[2018-02-07] MEDS ORDERED: chlordiazePOXIDE 5 MG CAPSULE PO SCH (17:00)
[2018-02-07 17:24] VITALS: BP 90/59; PULSE 60; TEMP 97.4
--- NOTE | 2018-02-07 17:28 | PN ---
S Progress Note Note: Patient could not wait for further evaluation. Patient left AMA.
--- NOTE | 2018-02-07 17:30 | DS ---
[facility] Detox Discharge Summary Admission Date: 02/05/18 Discharge Date: 02/07/18 - History Present History: Alcohol Dependence, Cocaine Dependence Additional Comments: Patient left AMA. Denies suicidal / homicidal ideation. Patient medically stable. Patient aware of the risk of leaving prior to completing the program. If worsening symptoms are present to patient to follow up with ED, local urgent care or primary care provider. Pertinent Past History: GERD Asthma Nicotine Dependence Vital Signs Temperature 97.4 F L 02/07/18 17:23 Pulse Rate 60 02/07/18 17:23 Respiratory Rate 18 02/07/18 17:23 Blood Pressure 90/59 02/07/18 17:23 O2 Sat by Pulse Oximetry (%) Laboratory Last Values WBC 4.2 K/mm3 (4.0-10.0) 02/06/18 08:00 RBC 4.18 M/mm3 (4.00-5.60) 02/06/18 08:00 Hgb 13.1 GM/dL (11.7-16.9) 02/06/18 08:00 Hct 38.2 % (35.4-49) 02/06/18 08:00 MCV 91.4 fl (80-96) 02/06/18 08:00 MCH 31.3 pg (25.7-33.7) 02/06/18 08:00 MCHC 34.2 g/dl (32.0-35.9) 02/06/18 08:00 RDW 14.6 % (11.9-15.9) 02/06/18 08:00 Plt Count 208 K/MM3 (134-434) 02/06/18 08:00 MPV 8.6 fl (7.5-11.1) 02/06/18 08:00 Sodium 141 mmol/L (136-145) 02/06/18 08:00 Potassium 4.2 mmol/L (3.5-5.1) 02/06/18 08:00 Chloride 107 mmol/L (98-107) 02/06/18 08:00 Carbon Dioxide 28 mmol/L (21-32) 02/06/18 08:00 Anion Gap 6 (8-16) L 02/06/18 08:00 BUN 22 mg/dL (7-18) H 02/06/18 08:00 Creatinine 0.9 mg/dL (0.7-1.3) 02/06/18 08:00 Creat Clearance w eGFR > 60 (>60) 02/06/18 08:00 Random Glucose 104 mg/dL (74-106) 02/06/18 08:00 Calcium 8.0 mg/dL (8.5-10.1) L 02/06/18 08:00 Total Bilirubin 0.3 mg/dL (0.2-1.0) D 02/06/18 08:00 AST 23 U/L (15-37) 02/06/18 08:00 ALT 27 U/L (12-78) D 02/06/18 08:00 Alkaline Phosphatase 88 U/L (45-117) D 02/06/18 08:00 Total Protein 6.6 g/dl (6.4-8.2) 02/06/18 08:00 Albumin 3.5 g/dl (3.4-5.0) 02/06/18 08:00 Urine Color Yellow 02/05/18 09:15 Urine Appearance Clear 02/05/18 09:15 Urine pH 7.0 (5.0-8.0) D 02/05/18 09:15 Ur Specific [place] 1.017 (1.001-1.035) 02/05/18 09:15 Urine Protein Negative (NEGATIVE) 02/05/18 09:15 Urine Glucose (UA) Negative (NEGATIVE) 02/05/18 09:15 Urine Ketones 1+ (NEGATIVE) H 02/05/18 09:15 Urine Blood Negative (NEGATIVE) 02/05/18 09:15 Urine Nitrite Negative (NEGATIVE) 02/05/18 09:15 Urine Bilirubin Negative (<2.0 mg/dL) 02/05/18 09:15 Urine Urobilinogen Negative mg/dL (0.2-1.0) 02/05/18 09:15 Ur Leukocyte Esterase Negative (NEGATIVE) 02/05/18 09:15 RPR Titer Nonreactive (NONREACTIVE) 02/06/18 08:00 - Physical Exam Results Vital Signs: Vital Signs Temperature 97.4 F L 02/07/18 17:23 Pulse Rate 60 02/07/18 17:23 Respiratory Rate 18 02/07/18 17:23 Blood Pressure 90/59 02/07/18 17:23 O2 Sat by Pulse Oximetry (%) - Medication Discharge Medications: Ambulatory Orders Albuterol Sulfate Inhaler - [Ventolin HFA Inhaler -] 2 puff IH Q4H PRN #0 inhaler 05/18/16 Budesonide/Formeterol Fumarate [SYMBICORT 160/4.5mcg -] 1 inh PO BID 02/05/18 Pantoprazole Sodium [Protonix -] 40 mg PO DAILY 02/05/18 Quetiapine Fumarate [Seroquel -] 200 mg PO HS 02/05/18 traZODone HCL [Desyrel -] 50 mg PO HS 02/05/18 - Diagnosis (1) Alcohol dependence with uncomplicated withdrawal Current Visit: Yes Status: Acute (2) Cocaine dependence Current Visit: Yes Status: Acute (3) Nicotine dependence Current Visit: Yes Status: Acute Qualifiers: Nicotine product type: cigarettes Substance use status: in withdrawal Qualified Code(s): F17.213 - Nicotine dependence, cigarettes, with withdrawal (4) Asthma Current Visit: Yes Status: Chronic (5) GERD (gastroesophageal reflux disease) Current Visit: Yes Status: Chronic Qualifiers: Esophagitis presence: esophagitis presence not specified Qualified Code(s) : K21.9 - Gastro-esophageal reflux disease without esophagitis (6) Weight loss Current Visit: Yes Status: Inactive - AMA Did Patient Leave Against Medical Advice: Yes
[2018-02-08] MEDS ORDERED: chlordiazePOXIDE HCL 10 MG CAPSULE PO SCH (17:00)
== END 2018-02-07 17:15 | disposition left against medical advice (07) | DRG 770 ==
LOC: YASAS 11:16 → Y3N 13:45
PROVIDERS: ADMIT Internal Medicine; ATTEND Internal Medicine
PROC: HZ2ZZZZ Detoxification Services for Substance Abuse Treatment (ICD-10-PCS; principal; 2018-02-05)
DX: F10.230 Alcohol dependence with withdrawal, uncomplicated (principal); F14.20 Cocaine dependence, uncomplicated; F17.210 Nicotine dependence, cigarettes, uncomplicated; F32.9 Major depressive disorder, single episode, unspecified; J45.909 Unspecified asthma, uncomplicated; K21.9 Gastro-esophageal reflux disease without esophagitis
CPT/HCPCS: 36415; 80053; 81003; 85027; 86593; 93005; 93010

== ENCOUNTER 2019-08-25 12:01 | Inpatient (IN) | payer BC ==
[2019-08-25 12:31] VITALS: BMI 23.8
--- NOTE | 2019-08-25 13:13 | HP ---
CIWA Score Nausea/Vomitin Muscle Tremors: 4-Moderate,w/Arms Extend Anxiety: 3 Agitation: 3 Paroxysmal Sweats: 1-Minimal Palms Moist Orientation: 1-Uncertain about Date Tacttile Disturbances: 1-Very Mild Itch/Numbness Auditory Disturbances: 0-None Visual Disturbances: 0-None Headache: 3-Moderate CIWA-Ar Total Score: 19 - Admission Criteria OASAS Guidelines: Admission for Medically Managed Detox: Requires at least one of the followin. CIWA greater than 12 2. Seizures within the past 24 hours 3. Delirium tremens within the past 24 hours 4. Hallucinations within the past 24 hours 5. Acute intervention needed for co occurring medical disorder 6. Acute intervention needed for co occurring psychiatric disorder 7. Severe withdrawal that cannot be handled at a lower level of care (continued vomiting, continued diarrhea, abnormal vital signs) requiring intravenous medication and/or fluids 8. Admitting History and Physical - Admission Chief Complaint: "I want to detox. I just relapsed 3 months ago." History of Present Illness: 58 year old male with alcohol dependence. He was last here in detox in 03/2018 and was abstinent until 3 months ago when he had a fight with his brother and then relapsed started drinking again. He is drinking up to 3-4 6pack of beers daily, last drink yesterday afternoon. Denies withdrawal seizures. He had a blackout 4 days ago though. He is using cocain $40 every 3 days, last used 2 days ago. He smokes 1/2ppd for many years started age [age] years old. PMH: Asthma, GERD Meds: Symbicort 1Puff BID, Protonix 40mg daily All: Haldol Psurg: Appendectomy Psych: H/O Depression He is domiciled and support systems in family and daughter, sister and brother. Brother came to live with him and was causing him stress. He has no legal issues pending. History Source: Patient Limitations to Obtaining History: No Limitations - Past Medical History Pulmonary: Yes: Asthma Gastrointestinal: Yes: GERD - Past Surgical History Past Surgical History: Yes: None - Smoking History Smoking history: Current every day smoker Have you smoked in the past 12 months: Yes Aproximately how many cigarettes per day: 10 - Alcohol/Substance Use Hx Alcohol Use: Yes (BEER) History of Substance Use: reports: Cocaine - Social History Usual Living Arrangement: Yes: With Spouse Do you think of yourself as: Straight/Heterosexual ADL: Independent Occupation: environmental service aid in [employer] History of Recent Travel: No Admission ROS [facility] Allergies/Adverse Reactions: Allergies Allergy/AdvReac Type Severity Reaction Status Date / Time haloperidol [From Haldol] Allergy Verified 08/25/19 12:25 - Ebola screening Have you traveled outside of the country in the last 21 days: No Have you had contact with anyone from an Ebola affected area: No Have you been sick,other than usual withdrawal symptoms: No Do you have a fever: No - Review of Systems Constitutional: Chills, Diaphoresis, Loss of Appetite, Unintentional Wgt. Loss EENT: reports: No Symptoms Reported Respiratory: reports: No Symptoms reported Cardiac: reports: No Symptoms Reported GI: reports: Nausea : reports: No Symptoms Reported Musculoskeletal: reports: No Symptoms Reported, Other (left ankle blister) Integumentary: reports: No Symptoms Reported Neuro: reports: No Symptoms reported Endocrine: reports: No Symptoms Reported Hematology: reports: No Symptoms Reported Psychiatric: reports: Judgement Intact, Mood/Affect Appropiate, Orientated x3, Agitated, Anxious Other Systems: Reviewed and Negative Patient History - Patient Medical History Hx Anemia: No Hx Asthma: Yes (ON MDI) Hx Chronic Obstructive Pulmonary Disease (COPD): No Hx Cancer: No Hx Cardiac Disorders: No Hx Congestive Heart Failure: No Hx Hypertension: No Hx Hypercholesterolemia: No Hx Pacemaker: No HX Cerebrovascular Accident: No Hx Seizures: No Hx Dementia: No Hx Diabetes: No Hx Gastrointestinal Disorders: Yes (GERD) Hx Liver Disease: No Hx Genitourinary Disorders: No Hx Sexually Transmitted Disorders: No (DENIES) Hx Renal Disease (ESRD): No Hx Thyroid Disease: No Hx Human Immunodeficiency Virus (HIV): No (LAST 08/11 NEGATIVE HX) Hx Hepatitis C: No (NEGATIVE HX) Hx Depression: Yes (NO MED) Hx Suicide Attempt: Yes (IN 2008 B/C MOTHER'S ;DENIES S/I TODAY.) Hx Bipolar Disorder: No Hx Schizophrenia: No - Patient Surgical History Past Surgical History: Yes Hx Neurologic Surgery: No Hx Cataract Extraction: No Hx Cardiac Surgery: No Hx Lung Surgery: No Hx Breast Surgery: No Hx Breast Biopsy: No Hx Abdominal Surgery: No Hx Appendectomy: Yes (at age 12) Hx Cholecystectomy: No Hx Genitourinary Surgery: No Hx Section: No Hx Orthopedic Surgery: No Anesthesia Reaction: No - PPD History Previous Implant?: Yes Documented Results: Negative w/o proof Implanted On Prior [facility] Admission?: No Date: 12/02/17 Results: NEGATIVE PPD to be Administered?: Yes - Smoking Cessation Smoking history: Current every day smoker Have you smoked in the past 12 months: Yes Aproximately how many cigarettes per day: 10 Cigars Per Day: 0 Hx Chewing Tobacco Use: No Initiated information on smoking cessation: Yes 'Breaking Loose' booklet given: 08/25/19 - Substance & Tx. History Hx Alcohol Use: Yes (3 6 packs of beer) Hx Substance Use: Yes Substance Use Type: Alcohol, Cocaine Hx Substance Use Treatment: No - Substances abused Alcohol Substance route: Oral Frequency: Daily Amount used: 3 -4 6pks beer Age of first use: 14 Date of last use: 08/24/19 Cocaine Substance route: Inhalation Amount used: $40 Age of first use: 38 Date of last use: 08/22/19 Admission Physical Exam S - Vital Signs Vital Signs: Vital Signs - 24 hr 08/25/19 08/25/19 12:22 13:04 Temperature 96.9 F L 96.9 F L Pulse Rate 95 H 95 H Respiratory 20 20 Rate Blood Pressure 124/80 124/80 - Physical General Appearance: Yes: Mild Distress, Tremorous, Sweating, Anxious HEENTM: Yes: EOMI, Hearing grossly Normal, Normal ENT Inspection, Normocephalic , ALISSA, Pharynx Normal, Tm's normal, Other (injected conjunctivae bilaterally) Respiratory: Yes: Chest Non-Tender, Lungs Clear Neck: Yes: No masses,lesions,Nodules, Supple, Trachea in good position Breast: Yes: Within Normal Limits Cardiology: Yes: Regular Rhythm, S1, S2, Tachycardia Abdominal: Yes: Normal Bowel Sounds, Non Tender, Soft, Surgical Scar (right lower right scar from appendectomy) Genitourinary: Yes: Within Normal Limits Back: Yes: Normal Inspection Musculoskeletal: Yes: full range of Motion, Gait Steady Extremities: Yes: Normal Capillary Refill, Normal Inspection, Normal Range of Motion, Non-Tender Neurological: Yes: home visit field care manager II-XII NML intact, Fully Oriented, Alert, Motor Strength 5/5, Normal Mood/Affect, Normal Response Integumentary: Yes: Normal Color, Warm Lymphatic: Yes: Within Normal Limits - Diagnostic (1) Alcohol dependence with uncomplicated withdrawal Current Visit: Yes Status: Acute (2) Cocaine dependence Current Visit: Yes Status: Acute (3) Nicotine dependence Current Visit: Yes Status: Acute Qualifiers: Nicotine product type: cigarettes Substance use status: in withdrawal Qualified Code(s): F17.213 - Nicotine dependence, cigarettes, with withdrawal Comment: declines gum/patch while here (4) Asthma Current Visit: Yes Status: Chronic (5) Depression Current Visit: No Status: Chronic (6) GERD (gastroesophageal reflux disease) Current Visit: No Status: Chronic Qualifiers: Esophagitis presence: esophagitis presence not specified Qualified Code(s) : K21.9 - Gastro-esophageal reflux disease without esophagitis Cleared for Admission [facility] - Detox or Rehab S Level of Care: Medically Managed Detox Regimen/Protocol: Not Applicable (ativan detox protocol) Screened but not Admitted - Documentation of Visit Screened but not Admitted: No Breathalyzer - Breathalyzer Breathalyzer: 0 Urine Drug Screen - Test Device Lot number: [id number] Expiration date: 04/26/21 - Control Is test valid?: Yes - Results Drug screen NEGATIVE: No Urine drug screen results: LAURA-Cocaine Inpatient Rehab Admission - Rehab Decision to Admit Inpatient rehab admission?: No
[2019-08-25] MEDS ORDERED: METHOCARBAMOL 500 MG TABLET PO PRN (13:28)
[2019-08-25] MEDS ORDERED: MENTHOL/PHENOL 1 EACH UD MM PRN (13:28)
[2019-08-25] MEDS ORDERED: IBUPROFEN 400 MG TABLET (FP) PO PRN (13:28)
[2019-08-25] MEDS ORDERED: MAG HYDROX/AL HYDROX/SIMETH 30 ML UNIT-DOSE CUP PO PRN (13:28)
[2019-08-25] MEDS ORDERED: MAGNESIUM CITRATE 300 ML BOTTLE PO PRN (13:28)
[2019-08-25] MEDS ORDERED: hydrOXYzine PAMOATE 25 MG CAPSULE (FP) PO PRN (13:28)
[2019-08-25] MEDS ORDERED: ACETAMINOPHEN 325 MG TABLET (FP) PO PRN ×2 (13:28)
[2019-08-25] MEDS ORDERED: BISMUTH SUBSALICYLATE 262 MG/15 ML BTL PO PRN (13:28)
[2019-08-25] MEDS ORDERED: LORazepam 1 MG TABLET PO PRN (13:28)
[2019-08-25] MEDS ORDERED: MELATONIN 5 MG TABLETS PO PRN (13:28)
[2019-08-25] MEDS ORDERED: MAGNESIUM HYDROX 2400MG/30ML ORAL SUSPENSION 30 ML CUP PO PRN (13:28)
[2019-08-25] MEDS ORDERED: ALBUTEROL SO4 8 GM HFA INHALER IH PRN (13:31)
[2019-08-25 14:21] LABS: HEMATOCRIT 43.7 % (35.4-49); HEMOGLOBIN 14.9 GM/dL (11.7-16.9); MCH 31.9 pg (25.7-33.7); MCHC 34.1 g/dl (32.0-35.9); MEAN CELL VOLUME 93.5 fl (80-96); MEAN PLT VOLUME 8.8 fl (7.5-11.1); PLATELET COUNT 267 K/MM3 (134-434); RBC 4.67 M/mm3 (4.00-5.60); RDW 13.6 % (11.9-15.9); WHITE BLOOD COUNT 9.3 K/mm3 (4.0-10.0)
[2019-08-25 14:25] LABS: ALBUMIN 4.2 g/dl (3.4-5.0); BILIRUBIN,TOTAL 1.2 mg/dL (0.2-1); BLOOD UREA NITROGEN 26.7 mg/dL (7-18); CALCIUM 8.9 mg/dL (8.5-10.1); CREATININE 1.4 mg/dL (0.55-1.3); TOT PROT 7.9 g/dl (6.4-8.2)
[2019-08-25] MEDS: LORazepam 2 MG TABLET PO SCH ×2 (17:42→22:20)
[2019-08-25] MEDS: BUDESONIDE/FORMETEROL FUMARATE 160/4.5 mcg INHALER IH SCH (22:10)
[2019-08-25] MEDS: THIAMINE HCL 100 MG TABLET (FP) PO SCH (22:11)
[2019-08-26] MEDS: LORazepam 2 MG TABLET PO SCH ×4 (05:52→22:15)
[2019-08-26] MEDS ORDERED: PANTOPRAZOLE 40 MG TABLET (FP) PO SCH (10:00)
[2019-08-26] MEDS ORDERED: PRENATAL VITAMINS W/ FOLIC ACID TABLET (FP) PO SCH (10:00)
[2019-08-26] MEDS: BUDESONIDE/FORMETEROL FUMARATE 160/4.5 mcg INHALER IH SCH ×2 (10:20→22:16)
--- NOTE | 2019-08-26 11:41 | PN ---
S CIWA - CIWA Score Nausea/Vomitin-No Nausea/No Vomiting Muscle Tremors: None Anxiety: 3 Agitation: 0-Normal Activity Paroxysmal Sweats: 3 Orientation: 0-Oriented Tacttile Disturbances: 0-None Auditory Disturbances: 0-None Visual Disturbances: 0-None Headache: 2-Mild CIWA-Ar Total Score: 8 [facility] Progress Note (SOAP) Subjective: c/o sweats, headache, anxiety, and interrupted sleep. Objective: 08/26/19 11:41 Vital Signs 08/26/19 08/26/19 06:31 09:15 Temperature 96.8 F L 97.8 F Pulse Rate 61 69 Respiratory 18 18 Rate Blood Pressure 105/57 L 100/57 L Laboratory Last Values WBC 9.3 K/mm3 (4.0-10.0) 08/25/19 13:25 RBC 4.67 M/mm3 (4.00-5.60) 08/25/19 13:25 Hgb 14.9 GM/dL (11.7-16.9) 08/25/19 13:25 Hct 43.7 % (35.4-49) 08/25/19 13:25 MCV 93.5 fl (80-96) 08/25/19 13:25 MCH 31.9 pg (25.7-33.7) 08/25/19 13:25 MCHC 34.1 g/dl (32.0-35.9) 08/25/19 13:25 RDW 13.6 % (11.9-15.9) 08/25/19 13:25 Plt Count 267 K/MM3 (134-434) 08/25/19 13:25 MPV 8.8 fl (7.5-11.1) 08/25/19 13:25 Sodium 133 mmol/L (136-145) L 08/25/19 13:25 Potassium 4.0 mmol/L (3.5-5.1) 08/25/19 13:25 Chloride 101 mmol/L (98-107) 08/25/19 13:25 Carbon Dioxide 25 mmol/L (21-32) 08/25/19 13:25 Anion Gap 7 MMOL/L (8-16) L 08/25/19 13:25 BUN 26.7 mg/dL (7-18) H 08/25/19 13:25 Creatinine 1.4 mg/dL (0.55-1.3) H 08/25/19 13:25 Est GFR (CKD-EPI)AfAm 63.73 08/25/19 13:25 Est GFR (CKD-EPI)NonAf 54.99 08/25/19 13:25 Random Glucose 145 mg/dL (74-106) H 08/25/19 13:25 Calcium 8.9 mg/dL (8.5-10.1) 08/25/19 13:25 Total Bilirubin 1.2 mg/dL (0.2-1) H 08/25/19 13:25 AST 43 U/L (15-37) H 08/25/19 13:25 ALT 45 U/L (13-61) 08/25/19 13:25 Alkaline Phosphatase 75 U/L (45-117) 08/25/19 13:25 Total Protein 7.9 g/dl (6.4-8.2) 08/25/19 13:25 Albumin 4.2 g/dl (3.4-5.0) 08/25/19 13:25 Labs noted. Assessment: 08/26/19 11:41 AOX3, in no acute respiratory distress. Full ROM, ambulating in the unit. withdrawal symptoms. Plan: continue detox.
[2019-08-26] MEDS: THIAMINE HCL 100 MG TABLET (FP) PO SCH (22:15)
[2019-08-27] MEDS ORDERED: LORazepam 1 MG TABLET PO SCH (05:00)
[2019-08-27 09:19] VITALS: BP 96/69; PULSE 81; TEMP 96.3
--- NOTE | 2019-08-27 10:42 | DS ---
[facility] Detox Discharge Summary Admission Date: 08/25/19 Discharge Date: 08/27/19 - History Present History: Alcohol Dependence Additional Comments: 58 years old male admitted on 08/25/19 for alcohol withdrawal sx management treated with ativan detox regimen patient is alert oriented x 3 speech clearly coherently ambulating on steady gait patient insists to leave the detox that [place] patient does not want to miss the plan patient refuse ciwa refuses discharge exist physical examination - Physical Exam Results Vital Signs: Vital Signs Temperature 96.3 F L 08/27/19 09:05 Pulse Rate 81 08/27/19 09:05 Respiratory Rate 18 08/27/19 09:05 Blood Pressure 96/69 08/27/19 09:05 O2 Sat by Pulse Oximetry (%) Pertinent Admission Physical Exam Findings: alcohol withdrawal sx Laboratory Last Values WBC 9.3 K/mm3 (4.0-10.0) 08/25/19 13:25 RBC 4.67 M/mm3 (4.00-5.60) 08/25/19 13:25 Hgb 14.9 GM/dL (11.7-16.9) 08/25/19 13:25 Hct 43.7 % (35.4-49) 08/25/19 13:25 MCV 93.5 fl (80-96) 08/25/19 13:25 MCH 31.9 pg (25.7-33.7) 08/25/19 13:25 MCHC 34.1 g/dl (32.0-35.9) 08/25/19 13:25 RDW 13.6 % (11.9-15.9) 08/25/19 13:25 Plt Count 267 K/MM3 (134-434) 08/25/19 13:25 MPV 8.8 fl (7.5-11.1) 08/25/19 13:25 Sodium 133 mmol/L (136-145) L 08/25/19 13:25 Potassium 4.0 mmol/L (3.5-5.1) 08/25/19 13:25 Chloride 101 mmol/L (98-107) 08/25/19 13:25 Carbon Dioxide 25 mmol/L (21-32) 08/25/19 13:25 Anion Gap 7 MMOL/L (8-16) L 08/25/19 13:25 BUN 26.7 mg/dL (7-18) H 08/25/19 13:25 Creatinine 1.4 mg/dL (0.55-1.3) H 08/25/19 13:25 Est GFR (CKD-EPI)AfAm 63.73 08/25/19 13:25 Est GFR (CKD-EPI)NonAf 54.99 08/25/19 13:25 Random Glucose 145 mg/dL (74-106) H 08/25/19 13:25 Calcium 8.9 mg/dL (8.5-10.1) 08/25/19 13:25 Total Bilirubin 1.2 mg/dL (0.2-1) H 08/25/19 13:25 AST 43 U/L (15-37) H 08/25/19 13:25 ALT 45 U/L (13-61) 08/25/19 13:25 Alkaline Phosphatase 75 U/L (45-117) 08/25/19 13:25 Total Protein 7.9 g/dl (6.4-8.2) 08/25/19 13:25 Albumin 4.2 g/dl (3.4-5.0) 08/25/19 13:25 lab noted patient will follow up with care provider in the community for his glucose elevation - Treatment Hospital Course: Detox Protocol Followed, Responded well Patient has Accepted a Rehab Referral to: community support approach - Medication Discharge Medications: Ambulatory Orders Albuterol Sulfate Inhaler - [Ventolin HFA Inhaler -] 2 puff IH Q4H PRN #0 inhaler 05/18/16 Budesonide/Formeterol Fumarate [SYMBICORT 160/4.5mcg -] 1 inh PO BID 02/05/18 Pantoprazole Sodium [Protonix -] 40 mg PO DAILY 02/05/18 - Diagnosis (1) GERD (gastroesophageal reflux disease) Status: Chronic Qualifiers: Esophagitis presence: without esophagitis Qualified Code(s): K21.9 - Gastro -esophageal reflux disease without esophagitis (2) Asthma Status: Chronic (3) Alcohol dependence with uncomplicated withdrawal Status: Acute (4) Nicotine dependence Status: Acute Qualifiers: Nicotine product type: cigarettes Substance use status: in withdrawal Qualified Code(s): F17.213 - Nicotine dependence, cigarettes, with withdrawal (5) Substance induced mood disorder Status: Resolved - AMA Did Patient Leave Against Medical Advice: Yes
[2019-08-28] MEDS ORDERED: LORazepam 0.5 MG TABLET PO PRN
[2019-08-28] MEDS ORDERED: LORazepam 0.5 MG TABLET PO SCH (05:00)
[2019-08-29] MEDS ORDERED: LORazepam 0.5 MG TABLET PO ONE (05:00)
== END 2019-08-27 09:10 | disposition left against medical advice (07) | DRG 894 ==
LOC: YASAS 12:01 → Y3N 13:36
PROVIDERS: ADMIT Allergy & Immunology; ATTEND Allergy & Immunology
PROC: HZ2ZZZZ Detoxification Services for Substance Abuse Treatment (ICD-10-PCS; principal; 2019-08-25)
DX: F10.230 Alcohol dependence with withdrawal, uncomplicated (principal); F14.20 Cocaine dependence, uncomplicated; F17.210 Nicotine dependence, cigarettes, uncomplicated; F19.24 Other psychoactive substance dependence with psychoactive substance-induced mood disorder; F32.9 Major depressive disorder, single episode, unspecified; J45.909 Unspecified asthma, uncomplicated; K21.9 Gastro-esophageal reflux disease without esophagitis; Z91.5 Personal history of self-harm; Z90.49 Acquired absence of other specified parts of digestive tract; Z88.0 Allergy status to penicillin
CPT/HCPCS: 36415; 80053; 85027; 86593